=== PATIENT | male | born 1960 | race African-American/Black ===

== ENCOUNTER 2017-05-06 15:41 | Emergency (ER) | payer MEDICARE, OTHER ==
[~2017-05-06] VITALS: Ht 182.9 cm; Wt 98.0 kg
[~2017-05-06 15:41] MED LIST: CIPR500T4 PO; GLIP5 PO; GLUCTAB PO; HYDR-3533 PO; LISI-360 PO; METR-1 PO; OMEP20TA39 PO; ZOCO40TA PO
[2017-05-06 15:44] VITALS: BP 174/88; PULSE 62; RESP 16; TEMP 98.9; O2SAT 99
[2017-05-06] MEDS ORDERED: MORPHINE SULFATE 2 MG/ML INJ IV PUSH ONE (16:15)
[2017-05-06] MEDS ORDERED: ONDANSETRON HCL 4 MG/2 ML VIAL IV PUSH ONE (16:15)
[2017-05-06] MEDS ORDERED: TETANUS/DIPHTHERIA TOXOID ADULT 0.5 ML VIAL IM ONE (16:15)
[2017-05-06 16:45] LABS: AUTOMATED NEUTROPHIL # 4.3 TH/MM3 (1.8-7.7); BASOPHIL % 0.5 % (0.0-2.0); EOSINOPHIL # 0.1 TH/MM3 (0-0.4); EOSINOPHIL % 1.8 % (0.0-4.0); HEMATOCRIT 43.1 % (39.0-51.0); HEMOGLOBIN 14.7 GM/DL (13.0-17.0); LYMPH % 30.8 % (9.0-44.0); LYMPHOCYTE # 2.3 TH/MM3 (1.0-4.8); MEAN CELL VOLUME 92.9 FL (80.0-100.0); MEAN CORPUSCULAR HEMOGLOBIN 31.7 PG (27.0-34.0); MEAN CORPUSCULAR HGB CONC 34.1 % (32.0-36.0); MEAN PLATELET VOLUME 8.9 FL (7.0-11.0); MONO % 10.1 % (0.0-8.0); MONOCYTE # 0.8 TH/MM3 (0-0.9); NEUT % 56.8 % (16.0-70.0); PLATELET COUNT 236 TH/MM3 (150-450); RED BLOOD COUNT 4.64 MIL/MM3 (4.50-5.90); WHITE BLOOD COUNT 7.5 TH/MM3 (4.0-11.0)
[2017-05-06 17:01] LABS: CALCIUM 8.7 MG/DL (8.5-10.1); CREATININE 0.9 MG/DL (0.60-1.30)
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
[2017-05-06] MEDS ORDERED: IOHEXOL 350 MG/ML 10 ML VIAL (for RAD DIAG) IVCONTRAST ONE (17:21)
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
[2017-05-06 17:44] VITALS: BP 169/82
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
[2017-05-06] MEDS ORDERED: DICL75TA PO (18:09)
[2017-05-06] MEDS ORDERED: TRAM50TA PO (18:09)
[2017-05-06] MEDS ORDERED: ROBA750T PO (18:09)
[2017-05-06 18:11] LABS: INTERNATIONAL NORMALIZED RATIO 1.1 RATIO; PROTHROMBIN TIME - PATIENT 10.7 SEC (9.8-11.6)
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
[2017-05-06] MEDS ORDERED: KETOROLAC TROMETHAMINE 30 MG/ML (IVP) VIAL IV PUSH ONE (18:30)
== END 2017-05-06 18:39 | disposition home or self-care (01) ==
LOC: NEPC 15:41
DX: S06.0X9A Concussion with loss of consciousness of unspecified duration, initial encounter (principal); M79.605 Pain in left leg; I10 Essential (primary) hypertension; E78.00 Pure hypercholesterolemia, unspecified; E11.9 Type 2 diabetes mellitus without complications; K21.9 Gastro-esophageal reflux disease without esophagitis; K76.0 Fatty (change of) liver, not elsewhere classified; F17.210 Nicotine dependence, cigarettes, uncomplicated; V29.9XXA Motorcycle rider (driver) (passenger) injured in unspecified traffic accident, initial encounter; Y92.414 Local residential or business street as the place of occurrence of the external cause; Z79.899 Other long term (current) drug therapy
CPT/HCPCS: 70450; 71010; 72125; 73080; 73502; 73564; 73590; 73610; 74177; 80048; 85025; 85610; 85730; 90714; 96372; 96374; 96375; 99285; J1885; J2270; J2405; Q9967